=== PATIENT | male | born 1965 ===

== ENCOUNTER → 2019-03-01 | Outpatient (CLI) | payer BC, OTHER ==
[~2019-03-01] MED LIST: AMOX500T10 PO; CEF300 PO; FLU60VIA41 IM; FLUT16SP19 NS; MUPI22OI28 TP
== END ==
LOC: AUD 10:15
PROVIDERS: ATTEND Otolaryngology
DX: H91.90 Unspecified hearing loss, unspecified ear (principal); H93.19 Tinnitus, unspecified ear
CPT/HCPCS: 92557; 92570